=== PATIENT | female | born 1995 | race Caucasian/White ===

== ENCOUNTER 2017-12-30 11:32 | Emergency (ER) | payer MEDICAID ==
[~2017-12-30] VITALS: Ht 152.4 cm; Wt 56.7 kg
[2017-12-30 11:38] VITALS: BP 122/79
[2017-12-30 13:00] VITALS: BP 118/74
== END 2017-12-30 13:00 | disposition home or self-care (01) ==
LOC: MED 11:32
DX: S91.332A Puncture wound without foreign body, left foot, initial encounter (principal); W22.8XXA Striking against or struck by other objects, initial encounter; Y93.89 Activity, other specified; Y92.89 Other specified places as the place of occurrence of the external cause; Y99.8 Other external cause status
CPT/HCPCS: 99283

== ENCOUNTER 2018-01-15 17:03 | Emergency (ER) | payer MEDICAID ==
[~2018-01-15] VITALS: Ht 154.9 cm; Wt 59.0 kg
[2018-01-15 17:08] VITALS: BP 122/74
--- NOTE | 2018-01-15 17:15 | NUR ---
Patient ambulated to bed 5. RN evaluating patient at bedside.
--- NOTE | 2018-01-15 17:35 | NUR ---
PATIENT PRESENTS TO ED WITH THE CHIEF C/O LOWER BACK PAIN . PT STATES SHE HAD FALL AT WORK PLACE ON WEDNESDAY SINCE THEN PAIN STARTED ON LOER BACK PAIN . DENIES N/V/D; SKIN IS PINK/WARM/DRY; AAOX4 WITH EVEN. HR EVEN AND REGULAR. PT DENIES ANY FEVER, CP, SOB, OR COUGH AT THIS TIME; PATIENT STATES PAIN OF 7/10 AT LOWER BACK THIS TIME; VSS WNL. PATIENT POSITIONED FOR COMFORT; HOB ELEVATED; BEDRAILS UP X2; BED DOWN. ER MD MADE AWARE OF PT STATUS.
[2018-01-15 18:00] LABS: APPEARANCE,URINE SL CLOUDY (CLEAR); BILIRUBIN,URINE NEGATIVE (NEGATIVE); BLOOD, URINE 2+ (NEGATIVE); COLOR,URINE YELLOW (YELLOW); LEUKOCYTE ESTERASE ,URINE TRACE (NEGATIVE); NITRITE, URINE POSITIVE (NEGATIVE); PH,URINE 6.5 (5.0-9.0); UGLUCOSE NEGATIVE (NEGATIVE)
[2018-01-15] MEDS ORDERED: oxyCODONE/APAP 5/325 MG 1 TAB TAB PO ONE (18:05)
[2018-01-15 18:27] LABS: RBC,URINE 11-20 (MOD) /HPF (0-5); WBC,URINE 6-15 (FEW) /HPF (0-5)
--- NOTE | 2018-01-15 19:06 | NUR ---
Pt. appears to be relaxed, resting in bed comfortably. Sister in law at bedside. No change in loc.
[2018-01-15 19:24] VITALS: BP 107/67
--- NOTE | 2018-01-15 19:26 | NUR ---
Patient discharged with v/s stable. Written and verbal after care instructions given and explained. Patient alert, oriented and verbalized understanding of instructions. Ambulatory with steady gait. All questions addressed prior to discharge. ID band removed. Patient advised to follow up with PMD. Rx of IBUPROFEN AND PERCOCET given. Patient educated on indication of medication including possible reaction and side effects. Opportunity to ask questions provided and answered. Needed documents handed to pt.
== END 2018-01-15 19:26 | disposition home or self-care (01) ==
LOC: MED 17:03
DX: S30.0XXA Contusion of lower back and pelvis, initial encounter (principal); X58.XXXA Exposure to other specified factors, initial encounter; Y93.89 Activity, other specified; Y92.89 Other specified places as the place of occurrence of the external cause; Y99.8 Other external cause status
CPT/HCPCS: 72220; 81001; 81025; 87086; 87186; 99285